=== PATIENT | male | born 1935 | race Caucasian/White ===

== ENCOUNTER 2021-07-10 10:08 | Inpatient (IN) ==
[2021-07-10] MEDS ORDERED: HYDROmorphone 1 MG/1 ML SYRINGE IV STA (10:28)
[2021-07-10] MEDS ORDERED: ONDANSETRON 4 MG/2 ML VIAL ONE (10:31)
[2021-07-10] MEDS ORDERED: ONDANSETRON 4 MG/2 ML VIAL IV STA (11:27)
[2021-07-10 11:37] LABS: Basophils % 0.4 % (0.0-0.8); Eosinophils % 0.2 % (0.00-10.9); Hemoglobin 13.5 GM/DL (14.0-18.0); Immature Granulocytes % 0.5 %; Immature Granulocytes Absolute 0.05 #; Lymphocytes # 0.6 10*3/uL (1.4-4.0); Lymphocytes % 5.7 % (21.2-54.2); Mean Corpuscular HGB Conc 32.9 GM/DL (32-36); Mean Corpuscular Volume 91.1 FL (87-102); Mean Platelet Volume 9.5 FL (9.6-12.0); Monocytes % 9.4 % (1.7-12.7); Neutrophils % 83.8 % (38.7-73.9); Platelet Count 269 T/CUMM (130-400); Red Cell Distribution Width 13.7 % (9.3-17.3); White Blood Count 10.3 T/CUMM (4-12)
[2021-07-10 11:47] LABS: PT Patient Result 11.3 SECS (10.5-12.0)
[2021-07-10] MEDS ORDERED: ONDANSETRON 4 MG/2 ML VIAL IV PRN (11:56)
[2021-07-10] MEDS ORDERED: ACETAMINOPHEN 325 MG TABLET PO PRN (11:56)
[2021-07-10 11:58] LABS: Albumin 3.1 G/DL (3.4-5.0); Bilirubin,Total 0.7 MG/DL (0.20-1.00); Calcium 8.7 MG/DL (8.5-10.1); Osmolality,Calculated 274.8 MOS/KG (273-304); Potassium 4.2 MMOL/L (3.5-5.1); Total Protein 7.3 G/DL (6.4-8.2)
[2021-07-10] MEDS: SODIUM CHLORIDE 0.9% 1,000 ML IV SCH ×2 (12:00→22:28)
[2021-07-10] MEDS ORDERED: GABAPENTIN 300 MG CAPSULE PO PRN (16:24)
[2021-07-10] MEDS: HYDROmorphone 1 MG/1 ML SYRINGE IV PRN (18:15)
[2021-07-10] MEDS: MEGESTROL 40 MG TABLET PO SCH (20:19)
[2021-07-10] MEDS: POTASSIUM CHLORIDE 10 MEQ TABLET PO SCH (20:19)
[2021-07-10] MEDS: DOCUSATE SODIUM 100 MG CAPSULE PO SCH (20:20)
[2021-07-10] MEDS: SOTALOL 80 MG TABLET PO SCH (20:20)
[2021-07-11] MEDS: HYDROmorphone 1 MG/1 ML SYRINGE IV PRN ×2 (01:15→05:56)
[2021-07-11] MEDS: SODIUM CHLORIDE 0.9% 1,000 ML IV SCH ×2 (05:02→14:36)
[2021-07-11] MEDS ORDERED: VANCOMYCIN INJ 750 MG in SODIUM CHLORIDE 0.9% 250 ML IV ONE (06:00)
[2021-07-11 06:38] LABS: Basophils # 0.1 10*3/uL (0.0-0.2); Basophils % 0.5 % (0.0-0.8); Eosinophils # 0.1 10*3/uL (0.0-0.87); Hematocrit 38.3 VOL% (42.0-52.0); Hemoglobin 12.6 GM/DL (14.0-18.0); Immature Granulocytes % 0.6 %; Immature Granulocytes Absolute 0.06 #; Lymphocytes # 0.8 10*3/uL (1.4-4.0); Lymphocytes % 7.5 % (21.2-54.2); Mean Corpuscular HGB Conc 32.9 GM/DL (32-36); Mean Corpuscular Volume 92.1 FL (87-102); Mean Platelet Volume 11.3 FL (9.6-12.0); Neutrophils % 75.4 % (38.7-73.9); Platelet Count 164 T/CUMM (130-400); Red Blood Count 4.16 MC/CUMM (3.8-5.5); Red Cell Distribution Width 13.8 % (9.3-17.3); White Blood Count 10.3 T/CUMM (4-12)
[2021-07-11 07:01] LABS: Calcium 7.9 MG/DL (8.5-10.1); Osmolality,Calculated 276.8 MOS/KG (273-304); Potassium 4.6 MMOL/L (3.5-5.1)
[2021-07-11] MEDS: CITALOPRAM 20 MG TABLET PO SCH (08:54)
[2021-07-11] MEDS: SOTALOL 80 MG TABLET PO SCH ×2 (08:54→20:38)
[2021-07-11] MEDS: DOCUSATE SODIUM 100 MG CAPSULE PO SCH ×2 (08:55→20:38)
[2021-07-11] MEDS: POTASSIUM CHLORIDE 10 MEQ TABLET PO SCH ×2 (08:55→20:38)
[2021-07-11] MEDS: MEGESTROL 40 MG TABLET PO SCH ×2 (08:55→20:38)
[2021-07-11] MEDS: FUROSEMIDE 40 MG TABLET PO SCH (08:55)
[2021-07-11] MEDS: TAMSULOSIN 0.4 MG CAPSULE PO SCH (08:55)
[2021-07-11] MEDS: PANTOPRAZOLE 40 MG TABLET PO SCH (08:56)
[2021-07-11] MEDS: CYANOCOBALAMIN 500 MCG TABLET PO SCH (08:56)
[2021-07-11] MEDS: predniSONE 1 MG TABLET PO SCH (08:56)
[2021-07-11] MEDS ORDERED: LACTATED RINGERS 1,000 ML IV SCH (10:00)
[2021-07-11] MEDS ORDERED: BUPIVACAINE MPF 0.5% 30 ML VIAL ONE (10:08)
[2021-07-11] MEDS ORDERED: MIDAZOLAM 2 MG/2 ML VIAL ONE (10:08)
[2021-07-11] MEDS ORDERED: ONDANSETRON 4 MG/2 ML VIAL ONE (10:08)
[2021-07-11] MEDS ORDERED: DEXMEDETOMIDINE 200 MCG/2 ML VIAL ONE (10:08)
[2021-07-11] MEDS ORDERED: buprenorphine HCL 0.3 MG/ML VIAL ONE (10:09)
[2021-07-11] MEDS ORDERED: BACITRACIN OINT 0.9 GM PACK TOP ONE (10:21)
[2021-07-11] MEDS ORDERED: PHENYLEPHRINE 1 MG/10 ML SYRINGE IV ONE ×3 (10:43→11:54)
[2021-07-11] MEDS ORDERED: KETAMINE 500 MG/10 ML VIAL ONE (10:52)
[2021-07-11] MEDS ORDERED: TRANEXAMIC ACID 1,000 MG/10 ML VIAL ONE (11:22)
[2021-07-11] MEDS ORDERED: ETOMIDATE 40 MG/20 ML VIAL IV ONE (11:34)
[2021-07-11] MEDS ORDERED: MAGNESIUM HYDROXIDE SUSP 30 ML UDCUP PO PRN (12:17)
[2021-07-11] MEDS ORDERED: KETOROLAC 15 MG/1 ML VIAL IV PRN (12:17)
[2021-07-11] MEDS ORDERED: ALBUMIN 25% 12.5 GM/50 ML VIAL IV ONE (13:18)
[2021-07-11] MEDS ORDERED: ALBUMIN 5% 12.5 GM/250 ML VIAL IV ONE (13:21)
[2021-07-11] MEDS: LACTATED RINGERS 1,000 ML IV SCH (15:38)
[2021-07-12] MEDS: LACTATED RINGERS 1,000 ML IV SCH (00:44)
[2021-07-12 05:02] LABS: Basophils % 0.3 % (0.0-0.8); Eosinophils % 0.4 % (0.00-10.9); Hematocrit 33.6 VOL% (42.0-52.0); Hemoglobin 10.7 GM/DL (14.0-18.0); Immature Granulocytes % 0.5 %; Immature Granulocytes Absolute 0.05 #; Lymphocytes # 0.7 10*3/uL (1.4-4.0); Lymphocytes % 6.5 % (21.2-54.2); Mean Corpuscular HGB Conc 31.8 GM/DL (32-36); Mean Corpuscular Volume 94.1 FL (87-102); Mean Platelet Volume 9.8 FL (9.6-12.0); Monocytes % 16.2 % (1.7-12.7); Neutrophils % 76.1 % (38.7-73.9); Platelet Count 202 T/CUMM (130-400); Red Blood Count 3.57 MC/CUMM (3.8-5.5); Red Cell Distribution Width 13.9 % (9.3-17.3); White Blood Count 10.2 T/CUMM (4-12)
[2021-07-12 05:17] LABS: Calcium 7.8 MG/DL (8.5-10.1); Osmolality,Calculated 279.5 MOS/KG (273-304)
[2021-07-12 05:34] LABS: Band Neutrophils 2 % (0-10); Hypochromia Slight; Lymphocytes 12 % (20-55); Microcytosis 1+; Ovalocytes Slight; Segmented Neutrophils 73 % (50-85); Total Cells Counted 100
[2021-07-12 05:36] LABS: Platelet Estimate Normal
[2021-07-12] MEDS: FONDAPARINUX 2.5 MG/0.5 ML SYRINGE SUBCUT SCH (05:37)
[2021-07-12] MEDS ORDERED: ERGOCALCIFEROL 50,000 UNIT CAPSULE PO SCH (08:30)
[2021-07-12] MEDS: SOTALOL 80 MG TABLET PO SCH ×2 (08:53→20:36)
[2021-07-12] MEDS: MEGESTROL 40 MG TABLET PO SCH ×2 (08:53→20:36)
[2021-07-12] MEDS: POTASSIUM CHLORIDE 10 MEQ TABLET PO SCH ×2 (08:53→20:36)
[2021-07-12] MEDS: CITALOPRAM 20 MG TABLET PO SCH (08:53)
[2021-07-12] MEDS: DOCUSATE SODIUM 100 MG CAPSULE PO SCH ×2 (08:53→20:36)
[2021-07-12] MEDS: TAMSULOSIN 0.4 MG CAPSULE PO SCH (08:53)
[2021-07-12] MEDS: FUROSEMIDE 40 MG TABLET PO SCH (08:54)
[2021-07-12] MEDS: CYANOCOBALAMIN 500 MCG TABLET PO SCH (08:54)
[2021-07-12] MEDS: PANTOPRAZOLE 40 MG TABLET PO SCH (08:54)
[2021-07-12] MEDS: predniSONE 1 MG TABLET PO SCH (08:54)
[2021-07-12] MEDS: CALCIUM (CARBONATE) 500 MG TABLET PO SCH (16:18)
[2021-07-13 05:33] LABS: Basophils % 0.4 % (0.0-0.8); Eosinophils % 0.1 % (0.00-10.9); Hematocrit 29.6 VOL% (42.0-52.0); Hemoglobin 9.6 GM/DL (14.0-18.0); Immature Granulocytes % 0.5 %; Immature Granulocytes Absolute 0.04 #; Lymphocytes # 0.6 10*3/uL (1.4-4.0); Lymphocytes % 6.5 % (21.2-54.2); Mean Corpuscular HGB Conc 32.4 GM/DL (32-36); Mean Platelet Volume 10.1 FL (9.6-12.0); Monocytes % 14.2 % (1.7-12.7); Neutrophils % 78.3 % (38.7-73.9); Platelet Count 182 T/CUMM (130-400); Red Blood Count 3.15 MC/CUMM (3.8-5.5); Red Cell Distribution Width 14.1 % (9.3-17.3); White Blood Count 8.6 T/CUMM (4-12)
[2021-07-13] MEDS: FONDAPARINUX 2.5 MG/0.5 ML SYRINGE SUBCUT SCH (05:51)
[2021-07-13 06:13] LABS: Hypochromia Slight; Lymphocytes 6 % (20-55); Platelet Estimate Normal; Segmented Neutrophils 83 % (50-85); Total Cells Counted 100
[2021-07-13] MEDS: CITALOPRAM 20 MG TABLET PO SCH (08:59)
[2021-07-13] MEDS: MEGESTROL 40 MG TABLET PO SCH ×2 (08:59→20:26)
[2021-07-13] MEDS: predniSONE 1 MG TABLET PO SCH (08:59)
[2021-07-13] MEDS: TAMSULOSIN 0.4 MG CAPSULE PO SCH (08:59)
[2021-07-13] MEDS: CYANOCOBALAMIN 500 MCG TABLET PO SCH (08:59)
[2021-07-13] MEDS: DOCUSATE SODIUM 100 MG CAPSULE PO SCH ×2 (09:00→20:26)
[2021-07-13] MEDS: SOTALOL 80 MG TABLET PO SCH ×2 (09:00→20:26)
[2021-07-13] MEDS: CALCIUM (CARBONATE) 500 MG TABLET PO SCH ×2 (09:00→17:17)
[2021-07-13] MEDS: PANTOPRAZOLE 40 MG TABLET PO SCH (09:00)
[2021-07-13] MEDS: POTASSIUM CHLORIDE 10 MEQ TABLET PO SCH ×2 (09:00→20:26)
[2021-07-13] MEDS: FUROSEMIDE 40 MG TABLET PO SCH (09:00)
[2021-07-14] MEDS: HYDROmorphone 1 MG/1 ML SYRINGE IV PRN ×2 (01:38→21:17)
[2021-07-14] MEDS: FONDAPARINUX 2.5 MG/0.5 ML SYRINGE SUBCUT SCH (06:00)
[2021-07-14 06:14] LABS: Basophils % 0.5 % (0.0-0.8); Eosinophils # 0.1 10*3/uL (0.0-0.87); Eosinophils % 1.6 % (0.00-10.9); Hematocrit 28.8 VOL% (42.0-52.0); Hemoglobin 9.4 GM/DL (14.0-18.0); Immature Granulocytes % 0.6 %; Immature Granulocytes Absolute 0.05 #; Lymphocytes % 12.4 % (21.2-54.2); Mean Corpuscular HGB Conc 32.6 GM/DL (32-36); Mean Corpuscular Volume 92.6 FL (87-102); Mean Platelet Volume 11.5 FL (9.6-12.0); Monocytes % 13.9 % (1.7-12.7); Platelet Count 242 T/CUMM (130-400); Red Blood Count 3.11 MC/CUMM (3.8-5.5); Red Cell Distribution Width 14.5 % (9.3-17.3)
[2021-07-14 06:40] LABS: Anisocytosis 2+; Lymphocytes 11 % (20-55); Segmented Neutrophils 80 % (50-85); Total Cells Counted 100
[2021-07-14 06:41] LABS: Platelet Estimate Normal; Polychromasia Slight
[2021-07-14] MEDS: CALCIUM (CARBONATE) 500 MG TABLET PO SCH ×2 (07:44→17:10)
[2021-07-14] MEDS: SOTALOL 80 MG TABLET PO SCH ×2 (09:32→20:47)
[2021-07-14] MEDS: FUROSEMIDE 40 MG TABLET PO SCH (09:33)
[2021-07-14] MEDS: CYANOCOBALAMIN 500 MCG TABLET PO SCH (09:33)
[2021-07-14] MEDS: predniSONE 1 MG TABLET PO SCH (09:33)
[2021-07-14] MEDS: DOCUSATE SODIUM 100 MG CAPSULE PO SCH ×2 (09:33→20:46)
[2021-07-14] MEDS: PANTOPRAZOLE 40 MG TABLET PO SCH (09:33)
[2021-07-14] MEDS: MEGESTROL 40 MG TABLET PO SCH ×2 (09:34→20:46)
[2021-07-14] MEDS: CITALOPRAM 20 MG TABLET PO SCH (09:34)
[2021-07-14] MEDS: TAMSULOSIN 0.4 MG CAPSULE PO SCH (09:34)
[2021-07-14] MEDS: POTASSIUM CHLORIDE 10 MEQ TABLET PO SCH ×2 (09:34→20:47)
[2021-07-15] MEDS: FONDAPARINUX 2.5 MG/0.5 ML SYRINGE SUBCUT SCH (06:21)
[2021-07-15 08:03] VITALS: BP 111/55
[2021-07-15] MEDS: predniSONE 1 MG TABLET PO SCH (08:35)
[2021-07-15] MEDS: POTASSIUM CHLORIDE 10 MEQ TABLET PO SCH (08:35)
[2021-07-15] MEDS: CALCIUM (CARBONATE) 500 MG TABLET PO SCH (08:35)
[2021-07-15] MEDS: FUROSEMIDE 40 MG TABLET PO SCH (08:35)
[2021-07-15] MEDS: SOTALOL 80 MG TABLET PO SCH (08:35)
[2021-07-15] MEDS: CITALOPRAM 20 MG TABLET PO SCH (08:35)
[2021-07-15] MEDS: TAMSULOSIN 0.4 MG CAPSULE PO SCH (08:35)
[2021-07-15] MEDS: PANTOPRAZOLE 40 MG TABLET PO SCH (08:36)
[2021-07-15] MEDS: CYANOCOBALAMIN 500 MCG TABLET PO SCH (08:36)
[2021-07-15] MEDS: DOCUSATE SODIUM 100 MG CAPSULE PO SCH (08:36)
[2021-07-15] MEDS: MEGESTROL 40 MG TABLET PO SCH (08:36)
== END 2021-07-15 12:16 | DRG 522 ==
LOC: N.ED 10:08 → N.EDINP 11:55 → N.3E 15:01
PROVIDERS: ADMIT Internal Medicine; ATTEND Internal Medicine

== ENCOUNTER 2021-07-27 12:17 | Inpatient (IN) ==
[2021-07-27] MEDS ORDERED: propofoL 200 MG/20 ML VIAL IV ONE (13:27)
[2021-07-27] MEDS ORDERED: MORPHINE 2 MG/1 ML SYRINGE IV STA (15:20)
[2021-07-27] MEDS ORDERED: ONDANSETRON 4 MG/2 ML VIAL IV STA (15:20)
[2021-07-27 15:46] LABS: Basophils # 0.1 10*3/uL (0.0-0.2); Basophils % 0.5 % (0.0-0.8); Eosinophils % 0.2 % (0.00-10.9); Hematocrit 39.2 VOL% (42.0-52.0); Immature Granulocytes % 0.6 %; Immature Granulocytes Absolute 0.07 #; Lymphocytes # 0.5 10*3/uL (1.4-4.0); Lymphocytes % 4.7 % (21.2-54.2); Mean Corpuscular HGB Conc 30.6 GM/DL (32-36); Mean Corpuscular Volume 96.3 FL (87-102); Mean Platelet Volume 10.1 FL (9.6-12.0); Monocytes # 1.5 10*3/uL (0.11-0.8); Monocytes % 13.9 % (1.7-12.7); Neutrophils % 80.1 % (38.7-73.9); Platelet Count 463 T/CUMM (130-400); Red Blood Count 4.07 MC/CUMM (3.8-5.5); Red Cell Distribution Width 14.6 % (9.3-17.3)
[2021-07-27 15:57] LABS: Partial Thromboplastin Time 26.3 SECS (23.8-32.1)
[2021-07-27 16:12] LABS: Calcium 8.1 MG/DL (8.5-10.1); Osmolality,Calculated 285.4 MOS/KG (273-304); Potassium 4.3 MMOL/L (3.5-5.1)
[2021-07-27 16:33] LABS: Lymphocytes 7 % (20-55); Metamyelocytes 1 %; Total Cells Counted 100
[2021-07-27 16:34] LABS: Platelet Estimate Increased
[2021-07-27] MEDS ORDERED: ONDANSETRON 4 MG/2 ML VIAL IV PRN (17:21)
[2021-07-27] MEDS ORDERED: NALOXONE 0.4 MG/ML VIAL IV PRN (17:21)
[2021-07-27] MEDS ORDERED: ACETAMINOPHEN 325 MG TABLET PO PRN (17:21)
[2021-07-27] MEDS: SODIUM CHLORIDE 0.45% 1,000 ML IV SCH (18:00)
[2021-07-27] MEDS: DOCUSATE SODIUM 100 MG CAPSULE PO SCH (20:51)
[2021-07-28] MEDS: MORPHINE 2 MG/1 ML SYRINGE IV PRN ×3 (00:53→21:27)
[2021-07-28] MEDS: SODIUM CHLORIDE 0.45% 1,000 ML IV SCH ×2 (06:06→20:17)
[2021-07-28] MEDS: SOTALOL 80 MG TABLET PO SCH ×2 (08:54→21:26)
[2021-07-28] MEDS: predniSONE 1 MG TABLET PO SCH (08:54)
[2021-07-28] MEDS: POTASSIUM CHLORIDE 10 MEQ TABLET PO SCH ×2 (08:54→21:27)
[2021-07-28] MEDS: PANTOPRAZOLE 40 MG TABLET PO SCH (08:54)
[2021-07-28] MEDS: TAMSULOSIN 0.4 MG CAPSULE PO SCH (08:54)
[2021-07-28] MEDS: CITALOPRAM 20 MG TABLET PO SCH (08:54)
[2021-07-28] MEDS: DOCUSATE SODIUM 100 MG CAPSULE PO SCH ×2 (08:54→21:27)
[2021-07-28] MEDS: METHOCARBAMOL 750 MG TABLET PO SCH ×2 (11:00→21:26)
[2021-07-28] MEDS: GABAPENTIN 300 MG CAPSULE PO PRN (22:31)
[2021-07-29] MEDS: MORPHINE 2 MG/1 ML SYRINGE IV PRN (06:25)
[2021-07-29 06:35] LABS: Osmolality,Calculated 276.8 MOS/KG (273-304)
[2021-07-29] MEDS ORDERED: VANCOMYCIN INJ 750 MG in SODIUM CHLORIDE 0.9% 250 ML IV ONE (06:46)
[2021-07-29] MEDS: SODIUM CHLORIDE 0.45% 1,000 ML IV SCH (09:03)
[2021-07-29] MEDS ORDERED: BACITRACIN OINT 0.9 GM PACK TOP ONE (09:20)
[2021-07-29] MEDS ORDERED: TUBERCULIN SKIN TEST 0.1 ML SYRINGE INTRADERM ONE (09:54)
[2021-07-29] MEDS ORDERED: LIDOCAINE 2% 5 ML VIAL ONE ×2 (10:22→12:40)
[2021-07-29] MEDS ORDERED: DEXAMETHASONE 4 MG/1 ML VIAL ONE (10:22)
[2021-07-29] MEDS ORDERED: ROPIVACAINE 0.5% 30 ML VIAL ONE (10:23)
[2021-07-29] MEDS ORDERED: MIDAZOLAM 2 MG/2 ML VIAL ONE (10:23)
[2021-07-29] MEDS ORDERED: ONDANSETRON 4 MG/2 ML VIAL ONE ×2 (10:24→13:47)
[2021-07-29] MEDS ORDERED: fentaNYL 100 MCG/2 ML VIAL ONE ×2 (10:24→12:38)
[2021-07-29] MEDS ORDERED: LACTATED RINGERS 1,000 ML IV SCH (10:30)
[2021-07-29] MEDS ORDERED: buprenorphine HCL 0.3 MG/ML VIAL ONE (10:55)
[2021-07-29] MEDS ORDERED: PHENYLEPHRINE 1 MG/10 ML SYRINGE IV ONE ×2 (12:40→13:46)
[2021-07-29] MEDS ORDERED: ROCURONIUM 50 MG/5 ML VIAL IV ONE (12:40)
[2021-07-29] MEDS ORDERED: PHENYLEPHRINE DRIP 0 MG/0 ML PREMIX IV ONE (12:40)
[2021-07-29] MEDS ORDERED: ETOMIDATE 40 MG/20 ML VIAL IV ONE (12:40)
[2021-07-29] MEDS ORDERED: TRANEXAMIC ACID 1,000 MG/10 ML VIAL ONE (13:47)
[2021-07-29] MEDS ORDERED: SEVOFLURANE 1 UNIT/15 MINUTE INH ONE (13:47)
[2021-07-29] MEDS ORDERED: GLYCOPYRROLATE 0.4 MG/2 ML VIAL ONE (13:48)
[2021-07-29] MEDS ORDERED: NEOSTIGMINE 10 MG/10 ML VIAL ONE (13:49)
[2021-07-29] MEDS ORDERED: MAGNESIUM HYDROXIDE SUSP 30 ML UDCUP PO PRN (14:10)
[2021-07-29] MEDS ORDERED: MORPHINE 2 MG/1 ML SYRINGE IV PRN (14:10)
[2021-07-29 14:30] LABS: Bilirubin,Urine Negative (Negative); Blood, Urine Negative (Negative); Glucose,Urine (UA) Negative (Negative); Ketones,Urine Negative (Negative); Mucus,Urine Occasional /LPF (Occasional); Nitrite,Urine Negative (Negative); Protein,Urine Negative (Negative); RBC,Urine 1 /HPF (0-4); Urine Appearance Clear (Clear); Urine Color Yellow (Yellow); Urine Specific Gravity 1.025 (1.001-1.035); Urine Urobilinogen 0.2 eU/dL (<2.0); Urine pH 5.5 (4.5-8.0)
[2021-07-29] MEDS ORDERED: ONDANSETRON 4 MG/2 ML VIAL IV PRN (15:04)
[2021-07-29] MEDS ORDERED: HYDROmorphone 1 MG/1 ML SYRINGE IV PRN (15:04)
[2021-07-29] MEDS: LACTATED RINGERS 1,000 ML IV SCH ×2 (15:40→21:47)
[2021-07-29] MEDS: DOCUSATE SODIUM 100 MG CAPSULE PO SCH ×2 (17:21→21:47)
[2021-07-29] MEDS: SOTALOL 80 MG TABLET PO SCH ×2 (17:21→21:47)
[2021-07-29] MEDS: CITALOPRAM 20 MG TABLET PO SCH (17:21)
[2021-07-29] MEDS: TAMSULOSIN 0.4 MG CAPSULE PO SCH (17:22)
[2021-07-29] MEDS: POTASSIUM CHLORIDE 10 MEQ TABLET PO SCH ×2 (17:22→21:47)
[2021-07-29] MEDS: PANTOPRAZOLE 40 MG TABLET PO SCH (17:23)
[2021-07-29] MEDS: METHOCARBAMOL 750 MG TABLET PO SCH ×2 (17:23→21:47)
[2021-07-29] MEDS: predniSONE 1 MG TABLET PO SCH (17:23)
[2021-07-29] MEDS: KETOROLAC 15 MG/1 ML VIAL IV SCH ×2 (17:32→21:47)
[2021-07-30] MEDS ORDERED: KETOROLAC 15 MG/1 ML VIAL IV SCH (05:30)
[2021-07-30] MEDS: KETOROLAC 15 MG/1 ML VIAL IV SCH (05:36)
[2021-07-30 06:23] LABS: Basophils % 0.2 % (0.0-0.8); Hematocrit 19.8 VOL% (42.0-52.0); Immature Granulocytes % 0.6 %; Immature Granulocytes Absolute 0.05 #; Lymphocytes # 0.8 10*3/uL (1.4-4.0); Lymphocytes % 9.3 % (21.2-54.2); Mean Corpuscular HGB Conc 31.8 GM/DL (32-36); Mean Corpuscular Volume 95.2 FL (87-102); Mean Platelet Volume 10.2 FL (9.6-12.0); Monocytes % 24.3 % (1.7-12.7); Neutrophils % 65.6 % (38.7-73.9); Platelet Count 294 T/CUMM (130-400); Red Blood Count 2.08 MC/CUMM (3.8-5.5); Red Cell Distribution Width 14.4 % (9.3-17.3); White Blood Count 8.1 T/CUMM (4-12)
[2021-07-30 06:25] LABS: Hemoglobin 6.3 GM/DL (14.0-18.0)
[2021-07-30] MEDS ORDERED: SODIUM CHLORIDE 0.9% 1,000 ML IV PRN ×2 (06:27→08:25)
[2021-07-30] MEDS: LACTATED RINGERS 1,000 ML IV SCH ×2 (06:38→21:27)
[2021-07-30 06:44] LABS: Band Neutrophils 2 % (0-10); Eosinophils 2 % (0-10); Lymphocytes 9 % (20-55); Total Cells Counted 100
[2021-07-30 06:45] LABS: Microcytosis 1+
[2021-07-30 06:46] LABS: Calcium 7.7 MG/DL (8.5-10.1); Potassium 4.3 MMOL/L (3.5-5.1)
[2021-07-30] MEDS ORDERED: FUROSEMIDE 20 MG/2 ML VIAL IV PRN (08:25)
[2021-07-30] MEDS: CITALOPRAM 20 MG TABLET PO SCH (08:28)
[2021-07-30] MEDS: predniSONE 1 MG TABLET PO SCH (08:28)
[2021-07-30] MEDS: DOCUSATE SODIUM 100 MG CAPSULE PO SCH ×2 (08:28→21:27)
[2021-07-30] MEDS: POTASSIUM CHLORIDE 10 MEQ TABLET PO SCH ×2 (08:28→21:28)
[2021-07-30] MEDS: METHOCARBAMOL 750 MG TABLET PO SCH ×2 (08:28→21:28)
[2021-07-30] MEDS: PANTOPRAZOLE 40 MG TABLET PO SCH (08:28)
[2021-07-30] MEDS: TAMSULOSIN 0.4 MG CAPSULE PO SCH (08:28)
[2021-07-30] MEDS: SOTALOL 80 MG TABLET PO SCH ×2 (08:28→21:28)
[2021-07-30] MEDS ORDERED: FONDAPARINUX 2.5 MG/0.5 ML SYRINGE SUBCUT SCH (09:00)
[2021-07-30] MEDS: MORPHINE 2 MG/1 ML SYRINGE IV PRN (09:55)
[2021-07-30] MEDS: GABAPENTIN 300 MG CAPSULE PO PRN (10:31)
[2021-07-30 18:10] LABS: Hematocrit 28.2 VOL% (42.0-52.0)
[2021-07-30 18:19] LABS: Hemoglobin 9.1 GM/DL (14.0-18.0)
[2021-07-31] MEDS: LACTATED RINGERS 1,000 ML IV SCH ×3 (01:31→15:35)
[2021-07-31] MEDS: MORPHINE 2 MG/1 ML SYRINGE IV PRN ×2 (04:24→11:01)
[2021-07-31 06:05] LABS: Basophils % 0.6 % (0.0-0.8); Eosinophils # 0.2 10*3/uL (0.0-0.87); Eosinophils % 2.3 % (0.00-10.9); Hematocrit 28.1 VOL% (42.0-52.0); Hemoglobin 9.2 GM/DL (14.0-18.0); Immature Granulocytes % 0.9 %; Immature Granulocytes Absolute 0.06 #; Lymphocytes % 14.2 % (21.2-54.2); Mean Corpuscular HGB Conc 32.7 GM/DL (32-36); Mean Corpuscular Volume 92.4 FL (87-102); Mean Platelet Volume 11.1 FL (9.6-12.0); Monocytes # 1.4 10*3/uL (0.11-0.8); Monocytes % 20.1 % (1.7-12.7); Neutrophils % 61.9 % (38.7-73.9); Platelet Count 260 T/CUMM (130-400); Red Blood Count 3.04 MC/CUMM (3.8-5.5); Red Cell Distribution Width 15.4 % (9.3-17.3); White Blood Count 7.1 T/CUMM (4-12)
[2021-07-31 06:32] LABS: Band Neutrophils 1 % (0-10); Eosinophils 2 % (0-10); Lymphocytes 12 % (20-55); Microcytosis 1+; Total Cells Counted 100
[2021-07-31 06:33] LABS: Calcium 7.8 MG/DL (8.5-10.1); Osmolality,Calculated 274.8 MOS/KG (273-304); Platelet Estimate Normal; Potassium 4.3 MMOL/L (3.5-5.1)
[2021-07-31] MEDS ORDERED: FONDAPARINUX 2.5 MG/0.5 ML SYRINGE SUBCUT SCH (09:00)
[2021-07-31] MEDS: POTASSIUM CHLORIDE 10 MEQ TABLET PO SCH (10:23)
[2021-07-31] MEDS: SOTALOL 80 MG TABLET PO SCH (10:23)
[2021-07-31] MEDS: predniSONE 1 MG TABLET PO SCH (10:23)
[2021-07-31] MEDS: DOCUSATE SODIUM 100 MG CAPSULE PO SCH (10:23)
[2021-07-31] MEDS: CITALOPRAM 20 MG TABLET PO SCH (10:23)
[2021-07-31] MEDS: TAMSULOSIN 0.4 MG CAPSULE PO SCH (10:23)
[2021-07-31] MEDS: PANTOPRAZOLE 40 MG TABLET PO SCH (10:23)
[2021-07-31] MEDS: METHOCARBAMOL 750 MG TABLET PO SCH (10:24)
[2021-07-31] MEDS ORDERED: NICOTINE 7 MG/24 HR PATCH TRANSDERM SCH (12:00)
[2021-07-31 12:36] VITALS: BP 118/62
== END 2021-07-31 16:13 | disposition swing bed (61) | DRG 466 ==
LOC: EDBD → EDUNIT# → N.ED 12:17 → N.3E 15:03
PROVIDERS: ADMIT Internal Medicine; ATTEND Internal Medicine

== ENCOUNTER 2021-08-29 10:25 | Inpatient (IN) ==
[2021-08-29] MEDS ORDERED: VANCOMYCIN 1,000 MG VIAL ONE (11:25)
[2021-08-29 11:50] LABS: Basophils # 0.1 10*3/uL (0.0-0.2); Basophils % 0.5 % (0.0-0.8); Eosinophils % 0.1 % (0.00-10.9); Hematocrit 32.1 VOL% (42.0-52.0); Hemoglobin 9.9 GM/DL (14.0-18.0); Immature Granulocytes % 0.6 %; Immature Granulocytes Absolute 0.06 #; Lymphocytes # 0.5 10*3/uL (1.4-4.0); Lymphocytes % 4.6 % (21.2-54.2); Mean Corpuscular HGB Conc 30.8 GM/DL (32-36); Mean Corpuscular Volume 92.8 FL (87-102); Monocytes # 1.2 10*3/uL (0.11-0.8); Monocytes % 12.5 % (1.7-12.7); Neutrophils % 81.7 % (38.7-73.9); Platelet Count 497 T/CUMM (130-400); Red Blood Count 3.46 MC/CUMM (3.8-5.5)
[2021-08-29 11:59] LABS: INR 1.1; PT Patient Result 12.1 SECS (10.5-12.0); Partial Thromboplastin Time 25.4 SECS (23.8-32.1)
[2021-08-29 12:10] LABS: Lymphocytes 3 % (20-55); Total Cells Counted 100
[2021-08-29 12:11] LABS: Platelet Estimate Increased
[2021-08-29 12:12] LABS: Bilirubin,Total 0.5 MG/DL (0.20-1.00); Calcium 7.9 MG/DL (8.5-10.1); Hypochromia Slight; Osmolality,Calculated 270.2 MOS/KG (273-304); Potassium 4.2 MMOL/L (3.5-5.1); Total Protein 6.3 G/DL (6.4-8.2)
[2021-08-29] MEDS ORDERED: VANCOMYCIN INJ 1,000 MG in SODIUM CHLORIDE 0.9% 250 ML IV ONE (12:40)
[2021-08-29] MEDS ORDERED: KETAMINE 500 MG/10 ML VIAL ONE (15:45)
[2021-08-29] MEDS ORDERED: LIDOCAINE 2% 5 ML VIAL ONE (15:45)
[2021-08-29] MEDS ORDERED: GLYCOPYRROLATE 0.4 MG/2 ML VIAL ONE (15:45)
[2021-08-29] MEDS ORDERED: fentaNYL 100 MCG/2 ML VIAL ONE (15:45)
[2021-08-29] MEDS ORDERED: ROCURONIUM 50 MG/5 ML VIAL IV ONE (15:45)
[2021-08-29] MEDS ORDERED: DESFLURANE 1 UNIT/15 MINUTE INH ONE ×2 (15:45→18:09)
[2021-08-29] MEDS ORDERED: propofoL 200 MG/20 ML VIAL IV ONE (15:45)
[2021-08-29] MEDS ORDERED: BUPIVACAINE MPF 0.25% 30 ML VIAL ONE (16:12)
[2021-08-29] MEDS ORDERED: ZALEPLON 5 MG CAPSULE PO PRN (16:51)
[2021-08-29] MEDS ORDERED: GABAPENTIN 300 MG CAPSULE PO PRN (16:51)
[2021-08-29] MEDS ORDERED: MAGNESIUM HYDROXIDE SUSP 30 ML UDCUP PO PRN (16:52)
[2021-08-29] MEDS ORDERED: ONDANSETRON 4 MG/2 ML VIAL IV PRN ×2 (16:52→17:19)
[2021-08-29] MEDS ORDERED: MORPHINE 2 MG/1 ML SYRINGE IV PRN ×3 (16:52→17:22)
[2021-08-29] MEDS ORDERED: PHENYLEPHRINE 10 MG/1 ML VIAL IV ONE (16:59)
[2021-08-29] MEDS ORDERED: ERGOCALCIFEROL 50,000 UNIT CAPSULE PO SCH (17:00)
[2021-08-29] MEDS ORDERED: TRANEXAMIC ACID 1,000 MG/10 ML VIAL ONE (17:15)
[2021-08-29] MEDS ORDERED: BACITRACIN OINT 0.9 GM PACK TOP ONE (17:18)
[2021-08-29] MEDS ORDERED: methylPREDNISolone SOD SUC 125 MG/2 ML VIAL ONE (17:23)
[2021-08-29] MEDS ORDERED: ALBUMIN 5% 12.5 GM/250 ML VIAL IV ONE (17:48)
[2021-08-29 18:37] LABS: Bacteria,Urine Many /HPF (Few); RBC,Urine 5 /HPF (0-4)
[2021-08-29 18:38] LABS: Bilirubin,Urine Negative (Negative); Blood, Urine Trace mg/dL (Negative); Glucose,Urine (UA) Negative (Negative); Ketones,Urine Negative (Negative); Nitrite,Urine Positive (Negative); Protein,Urine Negative (Negative); Urine Appearance Cloudy (Clear); Urine Color Yellow (Yellow); Urine Urobilinogen 0.2 eU/dL (<2.0)
[2021-08-29] MEDS: POTASSIUM CHLORIDE 10 MEQ TABLET PO SCH (22:00)
[2021-08-29] MEDS: MEGESTROL 40 MG TABLET PO SCH (22:00)
[2021-08-29] MEDS: SOTALOL 80 MG TABLET PO SCH (22:00)
[2021-08-29] MEDS: DOCUSATE SODIUM 100 MG CAPSULE PO SCH (22:00)
[2021-08-29] MEDS: LACTATED RINGERS 1,000 ML IV SCH (22:07)
[2021-08-29 23:42] LABS: Bilirubin,Urine Negative (Negative); Glucose,Urine (UA) Negative (Negative); Ketones,Urine Negative (Negative); Mucus,Urine Occasional /LPF (Occasional); Nitrite,Urine Negative (Negative); Protein,Urine Negative (Negative); RBC,Urine 10 /HPF (0-4); Squamous Epithelial Cell,Urine Occasional /HPF (0-10); Urine Appearance Clear (Clear); Urine Color Yellow (Yellow); Urine Specific Gravity 1.025 (1.001-1.035)
[2021-08-29 23:43] LABS: Blood, Urine Trace mg/dL (Negative)
[2021-08-30] MEDS: LACTATED RINGERS 1,000 ML IV SCH (04:37)
[2021-08-30 04:52] LABS: Basophils % 0.1 % (0.0-0.8); Hematocrit 26.5 VOL% (42.0-52.0); Immature Granulocytes % 0.7 %; Immature Granulocytes Absolute 0.06 #; Lymphocytes # 0.4 10*3/uL (1.4-4.0); Lymphocytes % 4.2 % (21.2-54.2); Mean Corpuscular HGB Conc 30.2 GM/DL (32-36); Mean Corpuscular Volume 93.6 FL (87-102); Mean Platelet Volume 9.4 FL (9.6-12.0); Monocytes # 0.2 10*3/uL (0.11-0.8); Monocytes % 2.6 % (1.7-12.7); Neutrophils % 92.4 % (38.7-73.9); Platelet Count 391 T/CUMM (130-400); Red Blood Count 2.83 MC/CUMM (3.8-5.5); Red Cell Distribution Width 15.8 % (9.3-17.3); White Blood Count 8.8 T/CUMM (4-12)
[2021-08-30 05:17] LABS: Calcium 7.8 MG/DL (8.5-10.1); Osmolality,Calculated 276.8 MOS/KG (273-304); Potassium 4.5 MMOL/L (3.5-5.1)
[2021-08-30 05:19] LABS: Anisocytosis 1+; Band Neutrophils 9 % (0-10); Lymphocytes 5 % (20-55); Macrocytosis Slight; Platelet Estimate Normal; Total Cells Counted 100
[2021-08-30] MEDS ORDERED: SODIUM CHLORIDE 0.9% 1,000 ML IV PRN (07:02)
[2021-08-30] MEDS: MEGESTROL 40 MG TABLET PO SCH ×3 (09:40→21:45)
[2021-08-30] MEDS: DOCUSATE SODIUM 100 MG CAPSULE PO SCH ×3 (09:40→21:42)
[2021-08-30] MEDS: FUROSEMIDE 40 MG TABLET PO SCH (09:40)
[2021-08-30] MEDS: CITALOPRAM 40 MG TABLET PO SCH (09:40)
[2021-08-30] MEDS: SOTALOL 80 MG TABLET PO SCH ×2 (09:40→21:27)
[2021-08-30] MEDS: predniSONE 1 MG TABLET PO SCH (09:40)
[2021-08-30] MEDS: CALCIUM (CARBONATE) 500 MG TABLET PO SCH ×2 (09:41→16:13)
[2021-08-30] MEDS: TAMSULOSIN 0.4 MG CAPSULE PO SCH (09:41)
[2021-08-30] MEDS: POTASSIUM CHLORIDE 10 MEQ TABLET PO SCH ×3 (09:41→21:44)
[2021-08-30] MEDS: CYANOCOBALAMIN 500 MCG TABLET PO SCH (09:41)
[2021-08-30] MEDS ORDERED: FONDAPARINUX 2.5 MG/0.5 ML SYRINGE SUBCUT SCH (11:00)
[2021-08-30] MEDS: METHOCARBAMOL 750 MG TABLET PO PRN (13:48)
[2021-08-30] MEDS ORDERED: ZINC OXIDE PASTE 113 GM TUBE TOP PRN (14:00)
[2021-08-30] MEDS: SULFAMETHOX/TRIMETHOPRIM 800-160 MG TABLET PO SCH (16:13)
[2021-08-30 18:57] LABS: Hematocrit 33.5 VOL% (42.0-52.0); Hemoglobin 10.9 GM/DL (14.0-18.0)
[2021-08-31 05:37] LABS: Basophils # 0.1 10*3/uL (0.0-0.2); Basophils % 0.4 % (0.0-0.8); Eosinophils % 0.2 % (0.00-10.9); Hemoglobin 11.2 GM/DL (14.0-18.0); Immature Granulocytes % 0.7 %; Immature Granulocytes Absolute 0.08 #; Lymphocytes # 0.8 10*3/uL (1.4-4.0); Lymphocytes % 6.7 % (21.2-54.2); Mean Corpuscular HGB Conc 32.9 GM/DL (32-36); Mean Corpuscular Volume 88.1 FL (87-102); Mean Platelet Volume 9.4 FL (9.6-12.0); Monocytes # 1.9 10*3/uL (0.11-0.8); Monocytes % 16.4 % (1.7-12.7); Neutrophils % 75.6 % (38.7-73.9); Platelet Count 334 T/CUMM (130-400); Red Blood Count 3.86 MC/CUMM (3.8-5.5); Red Cell Distribution Width 15.5 % (9.3-17.3); White Blood Count 11.3 T/CUMM (4-12)
[2021-08-31 06:12] LABS: Lymphocytes 9 % (20-55); Platelet Estimate Normal; Total Cells Counted 100
[2021-08-31] MEDS: CITALOPRAM 40 MG TABLET PO SCH (09:04)
[2021-08-31] MEDS: POTASSIUM CHLORIDE 10 MEQ TABLET PO SCH ×3 (09:04→22:29)
[2021-08-31] MEDS: CYANOCOBALAMIN 500 MCG TABLET PO SCH (09:04)
[2021-08-31] MEDS: DOCUSATE SODIUM 100 MG CAPSULE PO SCH ×3 (09:04→22:28)
[2021-08-31] MEDS: SULFAMETHOX/TRIMETHOPRIM 800-160 MG TABLET PO SCH ×2 (09:04→17:04)
[2021-08-31] MEDS: FUROSEMIDE 40 MG TABLET PO SCH (09:04)
[2021-08-31] MEDS: predniSONE 1 MG TABLET PO SCH (09:04)
[2021-08-31] MEDS: SOTALOL 80 MG TABLET PO SCH ×2 (09:04→21:22)
[2021-08-31] MEDS: CALCIUM (CARBONATE) 500 MG TABLET PO SCH ×2 (09:05→17:03)
[2021-08-31] MEDS: MEGESTROL 40 MG TABLET PO SCH ×2 (09:05→21:22)
[2021-08-31] MEDS: ASPIRIN EC 325 MG TABLET PO SCH (09:05)
[2021-08-31] MEDS: TAMSULOSIN 0.4 MG CAPSULE PO SCH (09:05)
[2021-09-01] MEDS: CYANOCOBALAMIN 500 MCG TABLET PO SCH (08:58)
[2021-09-01] MEDS: MEGESTROL 40 MG TABLET PO SCH ×2 (08:58→20:26)
[2021-09-01] MEDS: SULFAMETHOX/TRIMETHOPRIM 800-160 MG TABLET PO SCH ×2 (08:59→17:11)
[2021-09-01] MEDS: CALCIUM (CARBONATE) 500 MG TABLET PO SCH ×2 (08:59→17:11)
[2021-09-01] MEDS: POTASSIUM CHLORIDE 10 MEQ TABLET PO SCH ×3 (09:00→20:32)
[2021-09-01] MEDS: SOTALOL 80 MG TABLET PO SCH ×2 (09:00→20:26)
[2021-09-01] MEDS: ASPIRIN EC 325 MG TABLET PO SCH (09:00)
[2021-09-01] MEDS: DOCUSATE SODIUM 100 MG CAPSULE PO SCH ×3 (09:00→20:32)
[2021-09-01] MEDS: FUROSEMIDE 40 MG TABLET PO SCH (09:00)
[2021-09-01] MEDS: CITALOPRAM 40 MG TABLET PO SCH (09:00)
[2021-09-01] MEDS: predniSONE 1 MG TABLET PO SCH (09:00)
[2021-09-01] MEDS: TAMSULOSIN 0.4 MG CAPSULE PO SCH (09:02)
[2021-09-02] MEDS: TAMSULOSIN 0.4 MG CAPSULE PO SCH (09:42)
[2021-09-02] MEDS: SOTALOL 80 MG TABLET PO SCH (09:43)
[2021-09-02] MEDS: METHOCARBAMOL 750 MG TABLET PO PRN (09:43)
[2021-09-02] MEDS: CYANOCOBALAMIN 500 MCG TABLET PO SCH (09:43)
[2021-09-02] MEDS: predniSONE 1 MG TABLET PO SCH (09:43)
[2021-09-02] MEDS: MEGESTROL 40 MG TABLET PO SCH (09:44)
[2021-09-02] MEDS: ASPIRIN EC 325 MG TABLET PO SCH (09:44)
[2021-09-02] MEDS: FUROSEMIDE 40 MG TABLET PO SCH (09:44)
[2021-09-02] MEDS: CITALOPRAM 40 MG TABLET PO SCH (09:44)
[2021-09-02] MEDS: DOCUSATE SODIUM 100 MG CAPSULE PO SCH (09:44)
[2021-09-02] MEDS: POTASSIUM CHLORIDE 10 MEQ TABLET PO SCH (09:44)
[2021-09-02] MEDS: CALCIUM (CARBONATE) 500 MG TABLET PO SCH (09:44)
[2021-09-02] MEDS ORDERED: LEVOFLOXACIN 500 MG TABLET PO SCH (11:00)
[2021-09-02] MEDS: SULFAMETHOX/TRIMETHOPRIM 800-160 MG TABLET PO SCH (11:37)
[2021-09-02 12:18] VITALS: BP 92/51
== END 2021-09-02 14:10 | DRG 467 ==
LOC: N.3E 10:26 → N.OR 10:26 → N.SDSINP 10:26 → OBSVTOIN 16:53 → N.3E 19:19
PROVIDERS: ADMIT Orthopaedic Surgery; ATTEND Orthopaedic Surgery